=== PATIENT | female | born 1945 | race Caucasian/White ===

== ENCOUNTER 2018-03-04 20:28 | Emergency (ER) | payer MEDICARE, OTHER ==
--- NOTE | 2018-03-04 20:45 | EDM.PDOC ---
ED HPI GENERAL MEDICAL PROBLEM - General Chief Complaint: Lower Extremity Injury/Pain Stated Complaint: LT ANKLE PAIN Time Seen by Provider: 03/04/18 20:43 Source of Information: Reports: Patient - History of Present Illness INITIAL COMMENTS - FREE TEXT/NARRATIVE: 73 yo who twisted the right foot at home,now unable to put any weight on it. right foot Pain Score (Numeric/FACES): 6 - Related Data Allergies Allergy/AdvReac Type Severity Reaction Status Date / Time amoxicillin Allergy Abdominal Verified 03/04/18 20:45 Pain ciprofloxacin [From Cipro] Allergy Edema Verified 03/04/18 20:45 ciprofloxacin HCl Allergy Edema Verified 03/04/18 20:45 [From Cipro] clindamycin Allergy Abdominal Verified 03/04/18 20:45 Pain Home Meds: Home Meds Aloe Vera/Sodium Chloride [[place] Saline Nasal Gel] 1 applic REAGAN 6XDAY PRN [History] Calcium Carb & Citrate/Vit D3 [Calcium + D3 ER Tablet] 1 ea PO BIDMEALS [History] Lisinopril/Hydrochlorothiazide [Lisinopril-Hctz 20-12.5 mg Tab] 1 ea PO QAM [History] Aspirin 81 mg PO DAILY tab.chew 10/21/15 [Rx] Multivitamin [Multivitamins] 1 tab PO DAILY 10/21/15 [History] Sodium Chloride [Saline Nasal Mist] 1 spray ASDIRECTED PRN 10/21/15 [History] amLODIPine [Norvasc] 2.5 mg PO QPM 10/21/15 [History] Past Medical History HEENT History: Reports: Sinusitis, Other (See Below) Other HEENT History: Wears glasses. Occasional nose bleeds. 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 Dermatologic History: Reports: Eczema Other Dermatologic History: STATES INTERNALLY OF NOSE. - Infectious Disease History Infectious Disease History: Reports: Chicken Pox, Mumps, Other (See Below) Other Infectious Disease History: Scarlet fever as a child. She is not sure if she had measles or not. - Past Surgical History HEENT Surgical History: Reports: Naso-Sinus Surgery, Tonsillectomy GI Surgical History: Reports: Cholecystectomy Other Female Surgeries/Procedures: BSO Social & Family History - Family History Family Medical History: Noncontributory - Tobacco Use Smoking Status *Q: Never Smoker - Caffeine Use Caffeine Use: Reports: None - Recreational Drug Use Recreational Drug Use: No Review of Systems - Review of Systems Review Of Systems: ROS reveals no pertinent complaints other than HPI. ED EXAM, GENERAL - Physical Exam Exam: See Below Free Text/Narrative:: Tender right midfoot ,dorsum. Exam Limited By: No Limitations General Appearance: Alert, WD/WN, No Apparent Distress Course - Vital Signs Last Recorded V/S: Last Vital Signs Temp 98.7 F 03/04/18 20:28 Pulse 88 03/04/18 20:28 Resp 20 03/04/18 20:28 BP 181/60 H 03/04/18 20:28 Pulse Ox 100 03/04/18 20:28 - Orders/Labs/Meds Orders: Active Orders 24 hr Category Date Time Status Foot Comp Min 3V Rt [CR] Stat Exams 03/04/18 20:34 Ordered Departure - Departure Time of Disposition: 21:00 Disposition: Home, Self-Care 01 Clinical Impression: Closed fracture of metatarsal bone - Discharge Information Referrals: Adolfo Casey MD [Primary Care Provider] - Forms: ED Department Discharge - Problem List & Annotations (1) Birch fracture SNOMED Code(s): 953731000 Code(s): S99.199A - OTHER PHYSEAL FRACTURE OF UNSPECIFIED METATARSAL, INIT Status: Acute Current Visit: Yes - Problem List Review Problem List Initiated/Reviewed/Updated: Yes - My Orders Last 24 Hours: My Active Orders 03/04/18 20:34 Foot Comp Min 3V Rt [CR] Stat - Assessment/Plan Last 24 Hours: My Active Orders 03/04/18 20:34 Foot Comp Min 3V Rt [CR] Stat Plan: CAM walker.Tramadol PRN.
[2018-03-04] MEDS ORDERED: traMADol 50 MG Tab PO ONE (21:23)
[2018-03-04 21:43] VITALS: BP 153/66
--- NOTE | 2018-03-05 11:36 | CR ---
INDICATION: Pain across midfoot after standing up and heard/felt a crack. RIGHT FOOT: Three views of the right foot revealed a spiral fracture of the proximal metaphysis, extending perhaps slightly into the shaft of the 5th metatarsal, which is in good position and alignment. A minimal medial bunion deformity is noted. There are some degenerative changes at the PIPJ of the 2nd toe and DIPJ of the 3rd toe, and these are mild. Minimal degenerative changes noted at the 1st metatarsophalangeal joint also. Degenerative changes of mild degree are noted at the talonavicular joint and the ankle mortise. Plantar and posterior spurs are noted off the calcaneus. IMPRESSION: 1. Spiral hairline fracture proximal metaphysis of the 5th metatarsal. 2. Osteoarthritis. 3. Mild bunion deformity. MTDD
== END 2018-03-04 21:37 | disposition home or self-care (01) ==
LOC: FB.ED 20:28
DX: S92.351A Displaced fracture of fifth metatarsal bone, right foot, initial encounter for closed fracture (principal); I10 Essential (primary) hypertension; F41.9 Anxiety disorder, unspecified; X50.1XXA Overexertion from prolonged static or awkward postures, initial encounter; Z88.1 Allergy status to other antibiotic agents; Z88.8 Allergy status to other drugs, medicaments and biological substances; Z79.899 Other long term (current) drug therapy; Z79.82 Long term (current) use of aspirin
CPT/HCPCS: 73630; 99283; A9270

== ENCOUNTER 2020-06-05 17:57 | Emergency (ER) | payer MEDICARE, OTHER ==
[2020-06-05] MEDS ORDERED: Sodium Chloride 0.9% 10 ML Syringe FLUSH PRN (18:28)
[2020-06-05] MEDS ORDERED: Meclizine 25 MG Tab PO ONE (18:34)
--- NOTE | 2020-06-05 19:43 | EDM.PDOC ---
ED HPI GENERAL MEDICAL PROBLEM - General Chief Complaint: General Stated Complaint: WEAKNESS Time Seen by Provider: 06/05/20 19:05 Source of Information: Reports: Patient History Limitations: Reports: No Limitations - History of Present Illness INITIAL COMMENTS - FREE TEXT/NARRATIVE: Patient presented to the ED because of numbness and tingling of her left hand which started 5 days ago. There is neck pain and occipital headache. There is no slurred speech, facial droop, motor or sensory deficits. There is no fever,chills/cough or cold symptoms. - Related Data Allergies Allergy/AdvReac Type Severity Reaction Status Date / Time amoxicillin Allergy Abdominal Verified 03/04/18 20:45 Pain ciprofloxacin [From Cipro] Allergy Edema Verified 03/04/18 20:45 ciprofloxacin HCl Allergy Edema Verified 03/04/18 20:45 [From Cipro] clindamycin Allergy Abdominal Verified 03/04/18 20:45 Pain Home Meds: Home Meds Aloe Vera/Sodium Chloride [[place] Saline Nasal Gel] 1 applic REAGAN 6XDAY PRN 04/10/15 [History] Calcium Carb, Citrate/Vit D3 [Calcium + D3 ER Tablet] 1 ea PO BIDMEALS 04/10/15 [History] Lisinopril/Hydrochlorothiazide [Lisinopril-Hctz 20-12.5 mg Tab] 1 ea PO QAM 04/10/15 [History] Aspirin 81 mg PO DAILY tab.chew 10/21/15 [Rx] Multivitamin [Multivitamins] 1 tab PO DAILY 10/21/15 [History] Sodium Chloride [Saline Nasal Mist] 1 spray ASDIRECTED PRN 10/21/15 [History] amLODIPine [Norvasc] 2.5 mg PO QPM 10/21/15 [History] Past Medical History HEENT History: Reports: Sinusitis, Other (See Below) Other HEENT History: Wears glasses. Occasional nose bleeds. 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 Dermatologic History: Reports: Eczema Other Dermatologic History: STATES INTERNALLY OF NOSE. - Infectious Disease History Infectious Disease History: Reports: Chicken Pox, Mumps, Other (See Below) Other Infectious Disease History: Scarlet fever as a child. She is not sure if she had measles or not. - Past Surgical History HEENT Surgical History: Reports: Naso-Sinus Surgery, Tonsillectomy GI Surgical History: Reports: Cholecystectomy Other Female Surgeries/Procedures: BSO Social & Family History - Family History Family Medical History: No Pertinent Family History - Caffeine Use Caffeine Use: Reports: None ED ROS GENERAL - Review of Systems Review Of Systems: See Below Constitutional: Reports: No Symptoms HEENT: Reports: No Symptoms Respiratory: Reports: No Symptoms Cardiovascular: Reports: No Symptoms Endocrine: Reports: No Symptoms GI/Abdominal: Reports: No Symptoms : Reports: No Symptoms Musculoskeletal: Reports: No Symptoms Skin: Reports: No Symptoms Neurological: Reports: No Symptoms Psychiatric: Reports: No Symptoms Hematologic/Lymphatic: Reports: No Symptoms ED EXAM, GENERAL - Physical Exam Exam: See Below Exam Limited By: No Limitations General Appearance: Alert, No Apparent Distress Ears: Normal External Exam, Normal Canal Nose: Normal Inspection, Normal Mucosa Throat/Mouth: Normal Inspection, Normal Lips Head: Atraumatic, Normocephalic Neck: Normal Inspection, Supple, Non-Tender, Full Range of Motion Respiratory/Chest: No Respiratory Distress, Lungs Clear, Normal Breath Sounds Cardiovascular: Normal Peripheral Pulses, Regular Rate, Rhythm, No Edema, No Gallop GI/Abdominal: Normal Bowel Sounds, Soft, Non-Tender, No Organomegaly Extremities: Normal Inspection, Normal Range of Motion, Non-Tender Neurological: Alert, Oriented, CN II-XII Intact, Normal Cognition, Normal Gait, Normal Reflexes, No Motor/Sensory Deficits Psychiatric: Normal Affect Skin Exam: Warm Course - Vital Signs Text/Narrative:: Labs/EKG/CXR/Head CT was discussed with patient - Orders/Labs/Meds Orders: Active Orders 24 hr Category Date Time Status Head wo Cont [CT] Stat Exams 06/05/20 18:28 Taken Saline Lock Insert [OM.PC] Routine Oth 06/05/20 18:28 Ordered Labs: Laboratory Tests 06/05/20 06/05/20 06/05/20 Range/Units 18:38 18:38 18:38 WBC 8.2 (3.0-10.3) x10-3/uL RBC 4.10 (3.60-5.20) x10(6)uL Hgb 12.3 (11.4-15.5) g/dL Hct 37.4 (34.2-48.2) % MCV 91.3 (76.7-100.5) fL MCH 29.9 (23.9-33.9) pg MCHC 32.8 (31.9-34.8) g/dL RDW 13.3 (12.3-16.5) % Plt Count 253 (151-488) x10(3)uL MPV 7.3 (7.1-12.4) fL Neut % (Auto) 77.2 H (30.8-76.2) % Lymph % (Auto) 12.7 L (18.4-52.1) % [place] % (Auto) 8.3 (4.4-15.7) % Eos % (Auto) 1.2 (0.6-8.1) % Baso % (Auto) 0.6 (0.2-1.5) % Neut # (Auto) 6.4 H (1.5-6.3) x10-3/uL Lymph # (Auto) 1.0 (1.0-4.4) x10-3/uL [place] # (Auto) 0.7 (0.3-1.0) x10-3/uL Eos # (Auto) 0.1 (0.0-0.8) x10-3/uL Baso # (Auto) 0.1 (0.0-0.1) x10-3/uL PT 10.1 (9.0-11.1) sec INR 0.94 L (1.00-1.24) APTT 25.4 (24.4-33.2) SECONDS Sodium 140 (135-145) mmol/L Potassium 3.8 (3.5-5.3) mmol/L Chloride 100 (100-110) mmol/L Carbon Dioxide 28 (21-32) mmol/L BUN 20 H (7-18) mg/dL Creatinine 1.1 H (0.55-1.02) mg/dL Est Cr Clr Drug Dosing TNP Estimated GFR (MDRD) 48 L (>60) BUN/Creatinine Ratio 18.2 (9-20) Glucose 117 H (80-116) mg/dL Calcium 9.2 (8.6-10.2) mg/dL Total Bilirubin 0.7 (0.1-1.3) mg/dL AST 18 (5-25) IU/L ALT 24 (12-36) U/L Alkaline Phosphatase 103 (56-112) IU/L Troponin I (4.0-60.3) pg/mL Total Protein 7.6 (6.0-8.0) g/dL Albumin 4.2 (3.2-4.6) g/dL Globulin 3.4 g/dL Albumin/Globulin Ratio 1.2 06/05/20 Range/Units 18:38 WBC (3.0-10.3) x10-3/uL RBC (3.60-5.20) x10(6)uL Hgb (11.4-15.5) g/dL Hct (34.2-48.2) % MCV (76.7-100.5) fL MCH (23.9-33.9) pg MCHC (31.9-34.8) g/dL RDW (12.3-16.5) % Plt Count (151-488) x10(3)uL MPV (7.1-12.4) fL Neut % (Auto) (30.8-76.2) % Lymph % (Auto) (18.4-52.1) % [place] % (Auto) (4.4-15.7) % Eos % (Auto) (0.6-8.1) % Baso % (Auto) (0.2-1.5) % Neut # (Auto) (1.5-6.3) x10-3/uL Lymph # (Auto) (1.0-4.4) x10-3/uL [place] # (Auto) (0.3-1.0) x10-3/uL Eos # (Auto) (0.0-0.8) x10-3/uL Baso # (Auto) (0.0-0.1) x10-3/uL PT (9.0-11.1) sec INR (1.00-1.24) APTT (24.4-33.2) SECONDS Sodium (135-145) mmol/L Potassium (3.5-5.3) mmol/L Chloride (100-110) mmol/L Carbon Dioxide (21-32) mmol/L BUN (7-18) mg/dL Creatinine (0.55-1.02) mg/dL Est Cr Clr Drug Dosing Estimated GFR (MDRD) (>60) BUN/Creatinine Ratio (9-20) Glucose (80-116) mg/dL Calcium (8.6-10.2) mg/dL Total Bilirubin (0.1-1.3) mg/dL AST (5-25) IU/L ALT (12-36) U/L Alkaline Phosphatase (56-112) IU/L Troponin I 7.7 (4.0-60.3) pg/mL Total Protein (6.0-8.0) g/dL Albumin (3.2-4.6) g/dL Globulin g/dL Albumin/Globulin Ratio Meds: Medications Discontinued Medications Generic Name Dose Route Start Last Admin Trade Name Freq PRN Reason Stop Dose Admin Meclizine HCl 25 mg 06/05/20 18:34 06/05/20 18:45 Antivert PO 06/05/20 18:35 25 mg ONETIME ONE Administration Sodium Chloride 10 ml 06/05/20 18:28 Saline Flush FLUSH ASDIRECTED PRN Keep Vein Open Departure - Departure Time of Disposition: 19:40 Disposition: Home, Self-Care 01 Condition: Good Clinical Impression: Cervical disc disease, Radiculopathy - Discharge Information Instructions: Cervical Radiculopathy, Degenerative Disk Disease Referrals: Sherry Baugh PA [Primary Care Provider] - Forms: ED Department Discharge Additional Instructions: please read discharge instructions on crvical disc dse Take aleve twice daily for 1 week Follow up as needed - My Orders Last 24 Hours: My Active Orders 06/05/20 18:28 Head wo Cont [CT] Stat Saline Lock Insert [OM.PC] Routine - Assessment/Plan Last 24 Hours: My Active Orders 06/05/20 18:28 Head wo Cont [CT] Stat Saline Lock Insert [OM.PC] Routine
--- NOTE | 2020-06-05 20:30 | CR ---
CHEST ONE VIEW INDICATION: CVA. An AP upright portable view of the chest was obtained 06/05/2020 and compared with 10/21/2015 and 01/30/2010, again revealing evidence of exogenous obesity. The heart is likely at the upper limits of normal in size with tortuous aorta calcified in the arch. Overlying EKG leads are noted. An active infiltrate or effusion was not identified. IMPRESSION: No acute process--findings as noted above. MTDD
--- NOTE | 2020-06-06 07:52 | CT ---
CT HEAD WITHOUT CONTRAST: INDICATION: Left arm tingling, dizziness. Question CVA. History of nasal cavity cancer. Spiral 3.75 mm axial sections were obtained through the brain without contrast with axial, sagittal, and coronal reconstructions 06/05/2020 and compared with 10/21/2015. Total exam DLP was 1373.85 mGy-cm. The mastoid air cells were well aerated. The left frontal air cell is again noted to be opacified. There is again noted moderate thickening of the lining and possibly some minimal retention cysts at the base of the left maxillary antrum. Evidence of previous surgery is noted in the left nasal cavity. Increased lenticular calcifications are noted in the globes bilaterally, more severe on the left than right with the orbits otherwise intact. The cranium appears to be grossly intact. No shift of midline structures is noted. Prominent sulci are noted parieto-occipital for the most part but minimally in the frontal area also compatible with cortical atrophy of a moderate degree. The ventricles appear to be fairly normal. They are only mildly prominent compatible with the patient's age. There is difficulty in excluding an area decreased density in the kaelyn. If symptoms may be referable to that area, MRI is recommended for further evaluation--a previous MRI of the brain was obtained 10/30/2015 and did not show a definite abnormality in that area. IMPRESSION 1. No definite acute intracranial abnormality; although, there is suspicion of an area of ill-defined decreased density in the kaelyn which may need to be further evaluated by MRI. No bleeding site or hematoma was seen. 2. Cerebrovascular disease with vertebral, basilar, and internal carotid artery calcifications. 3. Cortical atrophy. Report was called to Dr. Bucio at [address] [facility]
[2020-06-08 07:17] VITALS: BP 202/83; PULSE 97
== END 2020-06-05 19:54 | disposition home or self-care (01) ==
LOC: FB.ED 17:57
DX: M50.10 Cervical disc disorder with radiculopathy, unspecified cervical region (principal); M19.90 Unspecified osteoarthritis, unspecified site; I10 Essential (primary) hypertension; Z88.1 Allergy status to other antibiotic agents; Z79.82 Long term (current) use of aspirin; Z79.899 Other long term (current) drug therapy
CPT/HCPCS: 36415; 70450; 71045; 80053; 84484; 85025; 85610; 85730; 99284-25; A9270-GY

== ENCOUNTER 2021-11-13 21:05 | Emergency (ER) | payer MEDICARE, OTHER ==
[2021-11-13 21:11] VITALS: BP 165/92; PULSE 107
[2021-11-13] MEDS ORDERED: predniSONE 20 MG Tab PO ONE (23:36)
== END 2021-11-13 23:45 | disposition home or self-care (01) ==
LOC: FB.ED 21:05
DX: R04.0 Epistaxis (principal); I10 Essential (primary) hypertension; Z79.899 Other long term (current) drug therapy; Z88.0 Allergy status to penicillin; Z88.1 Allergy status to other antibiotic agents; Z79.82 Long term (current) use of aspirin; Z90.49 Acquired absence of other specified parts of digestive tract
CPT/HCPCS: 36415; 70450; 85025; 85610; 86140; 99282; 99284; J7512

== ENCOUNTER 2023-07-11 18:01 | Emergency (ER) | payer MEDICARE, OTHER ==
[2023-07-11] MEDS ORDERED: Sodium Chloride 0.9% 10 ML Syringe FLUSH PRN (18:54)
[2023-07-11 19:10] LABS: BASOPHILS PERCENT AUTO 0.6 % (0.2-1.5); EOSINOPHILS ABSOLUTE AUTO 0.1 x10-3/uL (0.0-0.8); HEMATOCRIT 34.3 % (34.2-48.2); HEMOGLOBIN 11.9 g/dL (11.4-15.5); LYMPHOCYTES ABSOLUTE AUTO 0.9 x10-3/uL (1.0-4.4); LYMPHOCYTES PERCENT AUTO 11.7 % (18.4-52.1); MEAN CORPUSCULAR HEMOGLOBIN 30.6 pg (23.9-33.9); MEAN CORPUSCULAR HGB CONC 34.7 g/dL (31.9-34.8); MEAN CORPUSCULAR VOLUME 88.2 fL (76.7-100.5); MEAN PLATELET VOLUME 7.6 fL (7.1-12.4); MONOCYTES ABSOLUTE AUTO 0.6 x10-3/uL (0.3-1.0); MONOCYTES PERCENT AUTO 7.8 % (4.4-15.7); NEUTROPHILS ABSOLUTE AUTO 6.3 x10-3/uL (1.5-6.3); NEUTROPHILS PERCENT AUTO 78.9 % (30.8-76.2); PLATELET COUNT,PLT 264 x10(3)uL (151-488); RED CELL DISTRIBUTION WIDTH 13.6 % (12.3-16.5)
[2023-07-11 19:14] LABS: BLOOD UREA NITROGEN,BUN 19 mg/dL (7-18); BUN/CREATININE RATIO 17.3 (9-20); CALCIUM 9.4 mg/dL (8.6-10.2); CARBON DIOXIDE,CO2 27 mmol/L (21-32); CHLORIDE,CL 96 mmol/L (100-110); CREATININE 1.1 mg/dL (0.55-1.02); EST CRCL DRUG DOSING (CG) 38.82 mL/min; ESTIMATED GFR 51 mL/min (>60); GLUCOSE RANDOM 113 mg/dL (80-116); SODIUM,NA 131 mmol/L (135-145)
[2023-07-11 19:21] LABS: A/G RATIO 1.1; ALANINE AMINOTRANSFERASE,ALT 19 U/L (12-36); ALBUMIN 3.8 g/dL (3.2-4.6); ALKALINE PHOSPHATASE 100 IU/L (56-112); ASPARTATE AMNIOTRANSFERASE,AST 20 IU/L (5-25); BILIRUBIN TOTAL 0.9 mg/dL (0.1-1.3); PROTEIN TOTAL,TP 7.3 g/dL (6.0-8.0)
[2023-07-11 19:33] LABS: TROPONIN I 6.8 pg/mL (4.0-60.3)
[2023-07-11 19:49] VITALS: BP 128/62; PULSE 65
== END 2023-07-11 19:56 | disposition home or self-care (01) ==
LOC: FB.ED 18:01
DX: I10 Essential (primary) hypertension (principal); M50.90 Cervical disc disorder, unspecified, unspecified cervical region; E66.9 Obesity, unspecified; Z68.33 Body mass index [BMI] 33.0-33.9, adult; Z79.82 Long term (current) use of aspirin; Z79.899 Other long term (current) drug therapy; Z88.1 Allergy status to other antibiotic agents
CPT/HCPCS: 36415; 80053; 83880; 84484; 85025; 93005; 93010; 99283